=== PATIENT | female | born 1975 | race African-American/Black ===

== ENCOUNTER 2017-07-19 13:07 | Emergency (ER) | payer BC, OTHER ==
[~2017-07-19] VITALS: Ht 165.1 cm; Wt 65.8 kg
[~2017-07-19 13:07] MED LIST: AMOXICILLIN875 MG PO; AUGMENTIN 875875 MG PO; B COMPLEX-VITA1 EACH PO; CARISOPRODOL 3350 MG PO; CLARITIN10 MG PO; CLINDAMYCIN; COMPAZINE10 MG PO; COUMADIN 1MG TAB1 M1 NG; COUMADIN 5 MG TA5 M1 PO; FLEXERIL; FML 0.1% 10ML10 M1; HYDROCODON-ACE1 EAC7; IBUPROFEN 600600 M1 PO; IRON325 PO; K-DUR10 ME1 PO; LIPITOR80 MG PO; LORTABELXR PO; LYRICA 75 MG CA75 MG PO; MEDROLDOSEPACK PO; NAPROSYN500 MG PO; NIASPAN ER 101000 M1 PO; NOHOMEMEDICATIONS; NORCO 5-325 TA1 EACH; NORCO 5-325 TA1 EACH PO; PEPCID20 MG PO; PERCOCET 5-3251 EACH PO; POTASSIUM; TOBRAMYCIN SULFA5 ML IO; VALIUM2 MG PO; VITAMIN D10000 UNIT PO; ZOFRAN ODT4 MG PO
[2017-07-19 15:34] LABS: URINE BILIRUBIN NEGATIVE (Negative); URINE BLOOD NEGATIVE (Negative); URINE CLARITY SL CLOUDY; URINE COLOR YELLOW; URINE GLUCOSE-RANDOM* NEGATIVE (Negative); URINE KETONES NEGATIVE (Negative); URINE LEUKOCYTES NEGATIVE (Negative); URINE NITRITE NEGATIVE (Negative); URINE PROTEIN (DIPSTICK) NEGATIVE (Negative); URINE SPECIFIC GRAVITY <= 1.005 (1.005-1.035); URINE UROBILINOGEN 0.2 E.U./dl (0.2-1.0)
[2017-07-19 16:03] LABS: ABSOLUTE NEUTROPHILS 3.6 thou/uL (1.4-8.2); BASOPHILS 1.5 % (0.0-2.0); EOSINOPHILS 0.6 % (0.0-3.0); HEMATOCRIT 35.1 % (37.0-47.0); HEMOGLOBIN 11.8 gm/dL (12.0-15.0); LYMPHOCYTES 30.7 % (24.0-44.0); MCH 27.4 pg (26.0-34.0); MCHC 33.6 g/dL (28.0-37.0); MCV 81.4 fL (80.0-100.0); MONOCYTES 7.8 % (1.0-8.0); PLATELET COUNT 433 thou/uL (150-400); POLYS 59.4 % (36.0-66.0); RBC 4.32 mil/uL (4.20-5.00)
[2017-07-19] MEDS ORDERED: COUMADIN7.5 MG PO (16:10)
[2017-07-19 16:11] LABS: CALCIUM 9.5 mg/dL (8.5-10.1); CREATININE 0.8 mg/dL (0.6-1.0); POTASSIUM 3.8 mmol/L (3.5-5.1)
[2017-07-19 16:17] LABS: ALBUMIN 4.1 g/dL (3.4-5.0); TOTAL BILIRUBIN 0.6 mg/dL (<0.1-1.0); TOTAL PROTEIN 8.4 g/dL (6.4-8.2)
[2017-07-19] MEDS ORDERED: ONDANSETRON HCL4 M2 PO (17:08)
[2017-07-19] MEDS ORDERED: LEVSIN0.125 MG PO (17:08)
[2017-07-19 17:33] VITALS: BP 102/64
[2018-03-13] MEDS ORDERED: NORCO 5-325 TA1 EACH PO (18:57)
== END 2017-07-19 17:33 | disposition home or self-care (01) ==
LOC: ER 13:07
PROVIDERS: Physician Assistant
DX: B34.9 Viral infection, unspecified (principal)

== ENCOUNTER 2020-07-01 19:49 | Emergency (ER) | payer BC ==
[~2020-07-01] VITALS: Ht 170.2 cm; Wt 59.9 kg
[~2020-07-01 19:49] MED LIST changes: +COUMADIN7.5 MG PO; +LEVSIN0.125 MG PO; +ONDANSETRON HCL4 M2 PO
[2020-07-01 20:16] VITALS: BP 112/79
[2020-07-01] MEDS ORDERED: CARAFATE1 GM/10 ML PO (22:06)
[2020-07-01] MEDS ORDERED: ULTRAM50 MG PO (23:32)
--- NOTE | 2020-07-02 15:18 | EKG ---
[place] [address] [facility] [place] [employer] [employer] [place] [address] ELECTROCARDIOGRAM REPORT Name: MARCE CASTILLONIEL [facility]: [facility] [id number] Admission: 07/01/20 Attend Phys: Discharge: 07/01/20 Date of : 71 Report #: [id number] [facility] ED Test Date: 2020-07-01 Test Time: 22:21:08 Pat Name: MARCE CASTILLO Department: Room: Gender: F All Source Collection Manager: [facility] : 1975 Requested By: Hernando Ta Order Number: [id number] MD: Farhad Antoine Measurements Intervals [place] Rate: 79 P: 64 [place]: 134 QRS: 63 QRSD: 85 T: 60 QT: 366 QTc: 420 Interpretive Statements Sinus rhythm Normal tracing Compared to ECG 04/07/2013 16:16:05 No significant change was found Electronically Signed On 07-02-2020 15:18:07 [employer]OOK[employer] by Farhad Antoine [email or web address] <ELECTRONICALLY SIGNED> By: Farhad Antoine MD, [facility] 07/02/20 1518 [id number] [id number] Farhad Antoine MD, FACC /EPI
== END 2020-07-01 23:50 | disposition home or self-care (01) ==
LOC: ER 19:49
DX: R07.9 Chest pain, unspecified (principal); R13.10 Dysphagia, unspecified; G89.18 Other acute postprocedural pain; J02.9 Acute pharyngitis, unspecified; Z79.01 Long term (current) use of anticoagulants; Z79.899 Other long term (current) drug therapy

== ENCOUNTER 2020-09-03 10:19 | Emergency (ER) | payer OTHER ==
[~2020-09-03] VITALS: Ht 165.1 cm; Wt 56.7 kg
[~2020-09-03 10:19] MED LIST changes: +CARAFATE1 GM/10 ML PO; +ULTRAM50 MG PO
[2020-09-03 11:04] LABS: URINE BILIRUBIN NEGATIVE (Negative); URINE BLOOD 3+ (Negative); URINE CLARITY CLEAR; URINE COLOR YELLOW; URINE GLUCOSE-RANDOM* NEGATIVE (Negative); URINE KETONES NEGATIVE (Negative); URINE LEUKOCYTES-REFLEX NEGATIVE (Negative); URINE NITRITE-REFLEX NEGATIVE (Negative); URINE PROTEIN (DIPSTICK) NEGATIVE (Negative); URINE SPECIFIC GRAVITY <= 1.005 (1.005-1.035); URINE UROBILINOGEN 0.2 E.U./dl (0.2-1.0)
[2020-09-03 11:20] LABS: CASTS None Seen /LPF (None Seen); CRYSTALS None Seen /LPF (None Seen); SQUAMOUS 4-10 Moderate /LPF (0-3)
[2020-09-03 11:23] LABS: BACTERIA-REFLEX 1-9 Few /HPF (None Seen); URINE RBC 0-2 Rare /HPF (0-2); URINE WBC-REFLEX 0-5 Rare /HPF (0-5)
[2020-09-03] MEDS ORDERED: HYDROCODON-ACE1 EAC7 PO (11:45)
[2020-09-03] MEDS ORDERED: DORYX MPC120 MG PO (11:46)
[2020-09-03] MEDS ORDERED: MELOXICAM15 MG PO (11:46)
[2020-09-03 11:48] LABS: ABSOLUTE NEUTROPHILS 1.5 thou/uL (1.4-8.2); BASOPHILS 1.4 % (0.0-2.0); EOSINOPHILS 7.7 % (0.0-3.0); HEMATOCRIT 31.6 % (37.0-47.0); HEMOGLOBIN 10.3 gm/dL (12.0-15.0); LYMPHOCYTES 35.6 % (24.0-44.0); MCH 28.9 pg (26.0-34.0); MCHC 32.6 g/dL (28.0-37.0); MCV 88.7 fL (80.0-100.0); MONOCYTES 9.1 % (1.0-8.0); PLATELET COUNT 406 thou/uL (150-400); POLYS 46.2 % (36.0-66.0); RBC 3.56 mil/uL (4.20-5.00); WBC 3.2 thou/uL (4.0-11.0)
[2020-09-03 11:49] LABS: ANION GAP 6 mmol/L (7-16); BUN 7 mg/dL (7-18); CALCIUM 9.1 mg/dL (8.5-10.1); CHLORIDE 101 mmol/L (98-107); CO2 30 mmol/L (21-32); CREATININE 0.8 mg/dL (0.6-1.0); GLUCOSE 127 mg/dL (74-106); SODIUM 137 mmol/L (136-145)
[2020-09-03] MEDS ORDERED: AMITRIPTYLINE H10 M1 PO (11:49)
[2020-09-03 12:00] LABS: ALBUMIN 3.6 g/dL (3.4-5.0); AMYLASE 41 U/L (25-115); DIRECT BILIRUBIN < 0.1 mg/dL (<0.1-0.2); LIPASE 94 U/L (73-393); MAGNESIUM 1.8 mg/dL (1.8-2.4); PHOSPHORUS 1.9 mg/dL (2.5-4.9); SGOT 29 U/L (15-37); SGPT 93 U/L (30-65); TOTAL BILIRUBIN 0.2 mg/dL (0.2-1.0); TOTAL PROTEIN 7.4 g/dL (6.4-8.2); TROPONIN-I <0.06 ng/mL (<0.06)
[2020-09-03 12:55] LABS: ANISOCYTOSIS 1+; OVALOCYTES FEW; POIKILOCYTOSIS SLIGHT
[2020-09-03] MEDS ORDERED: MACROBID 100 M100 M1 PO (13:37)
[2020-09-03] MEDS ORDERED: PYRIDIUM200 MG PO (13:37)
[2020-09-03] MEDS ORDERED: ZOFRAN ODT4 MG PO (13:37)
[2020-09-03 14:07] VITALS: BP 104/65
--- NOTE | 2020-09-06 07:35 | EKG ---
[place] [address] [facility] [place] [address] ELECTROCARDIOGRAM REPORT Name: MARCE CASTILLONIEL [facility] [id number] Admission: 09/03/20 Attend Phys: Discharge: 09/03/20 Date of : 71 Report #: [id number] [facility] ED Test Date: 2020-09-03 Test Time: 11:15:46 Pat Name: MARCE CASTILLO Department: Room: Gender: F Timber Sprinkler: JAYDE GAITAN : 1975 Requested By: Uday Low Order Number: [id number] MD: Matheus Vazquez Measurements Intervals [place] Rate: 80 P: 61 [place]: 128 QRS: 33 QRSD: 86 T: 29 QT: 375 QTc: 433 Interpretive Statements Sinus rhythm Probable left atrial enlargement Compared to ECG 07/01/2020 22:21:08 No significant changes Electronically Signed On 09-06-2020 7:35:18 PRECISION LENS CENTERER AND EDGER by Matheus Vazquez [email or web address] <ELECTRONICALLY SIGNED> By: Matheus Vazquez MD, [facility] 09/06/20 0735 1115 1115 Matheus Vazquez MD, FACC /EPI
== END 2020-09-03 14:08 | disposition home or self-care (01) ==
LOC: ER 10:19
PROVIDERS: Emergency Medicine
DX: S30.1XXA Contusion of abdominal wall, initial encounter (principal); E78.5 Hyperlipidemia, unspecified; G89.18 Other acute postprocedural pain; N39.0 Urinary tract infection, site not specified; E83.39 Other disorders of phosphorus metabolism; Z90.49 Acquired absence of other specified parts of digestive tract; Z79.01 Long term (current) use of anticoagulants; Z79.2 Long term (current) use of antibiotics; Z79.899 Other long term (current) drug therapy; Z88.8 Allergy status to other drugs, medicaments and biological substances; X58.XXXA Exposure to other specified factors, initial encounter; Y93.89 Activity, other specified; Y92.89 Other specified places as the place of occurrence of the external cause; Y99.8 Other external cause status

== ENCOUNTER 2020-09-10 19:32 | Emergency (ER) | payer OTHER ==
[~2020-09-10] VITALS: Ht 165.1 cm; Wt 57.6 kg
[~2020-09-10 19:32] MED LIST changes: +AMITRIPTYLINE H10 M1 PO; +DORYX MPC120 MG PO; +HYDROCODON-ACE1 EAC7 PO; +MACROBID 100 M100 M1 PO; +MELOXICAM15 MG PO; +PYRIDIUM200 MG PO
[2020-09-10 19:58] LABS: URINE BILIRUBIN NEGATIVE (Negative); URINE BLOOD 1+ (Negative); URINE CLARITY CLEAR; URINE COLOR YELLOW; URINE GLUCOSE-RANDOM* NEGATIVE (Negative); URINE KETONES NEGATIVE (Negative); URINE LEUKOCYTES-REFLEX NEGATIVE (Negative); URINE NITRITE-REFLEX NEGATIVE (Negative); URINE PROTEIN (DIPSTICK) NEGATIVE (Negative); URINE UROBILINOGEN 0.2 E.U./dl (0.2-1.0)
[2020-09-10 20:23] LABS: ABSOLUTE NEUTROPHILS 3.4 thou/uL (1.4-8.2); BASOPHILS 0.9 % (0.0-2.0); EOSINOPHILS 2.9 % (0.0-3.0); HEMATOCRIT 37.9 % (37.0-47.0); HEMOGLOBIN 12.4 gm/dL (12.0-15.0); LYMPHOCYTES 32.1 % (24.0-44.0); MCH 28.6 pg (26.0-34.0); MCHC 32.8 g/dL (28.0-37.0); MCV 87.3 fL (80.0-100.0); MONOCYTES 6.6 % (1.0-8.0); PLATELET COUNT 478 thou/uL (150-400); POLYS 57.5 % (36.0-66.0); RBC 4.34 mil/uL (4.20-5.00); RDW 18.6 % (10.5-14.5); WBC 5.9 thou/uL (4.0-11.0)
[2020-09-10 20:25] LABS: SQUAMOUS >10 Many /LPF (0-3)
[2020-09-10 20:26] LABS: BACTERIA-REFLEX 1-9 Few /HPF (None Seen); CASTS None Seen /LPF (None Seen)
[2020-09-10 20:27] LABS: CRYSTALS None Seen /LPF (None Seen); URINE RBC 0-2 Rare /HPF (0-2); URINE WBC-REFLEX 0-5 Rare /HPF (0-5)
[2020-09-10 21:01] LABS: CALCIUM 9.6 mg/dL (8.5-10.1); CREATININE 0.8 mg/dL (0.6-1.0); POTASSIUM 3.8 mmol/L (3.5-5.1)
[2020-09-10 21:07] LABS: ALBUMIN 4.2 g/dL (3.4-5.0); TOTAL BILIRUBIN 0.5 mg/dL (0.2-1.0); TOTAL PROTEIN 8.3 g/dL (6.4-8.2)
[2020-09-10 21:12] LABS: INR 1.8
[2020-09-11 00:11] VITALS: BP 119/72
--- NOTE | 2020-09-11 11:19 | EKG ---
[place] [address] [facility] [place] [address] ELECTROCARDIOGRAM REPORT Name: MARCE CASTILLONIEL [facility] [id number] Admission: 09/10/20 Attend Phys: Discharge: 09/11/20 Date of : 71 Report #: [id number] [facility] ED Test Date: 2020-09-10 Test Time: 19:42:22 Pat Name: MARCE CASTILLO Department: Room: Gender: F Agile Test Lead: umer : 1975 Requested By: Corey Cruz Order Number: [id number] MD: Farhad Antoine Measurements Intervals [place] Rate: 86 P: 70 [place]: 122 QRS: 55 QRSD: 80 T: 27 QT: 355 QTc: 425 Interpretive Statements Sinus rhythm Consider left ventricular hypertrophy Compared to ECG 09/03/2020 11:15:46 No significant changes Electronically Signed On 09-11-2020 11:19:20 SENIOR MAINTENANCE MECHANIC by Farhad Antoine [email or web address] <ELECTRONICALLY SIGNED> By: Farhad Antoine MD, [facility] 09/11/20 1119 41 41 Farhad Antoine MD, FACC /EPI
== END 2020-09-11 00:17 | disposition home or self-care (01) ==
LOC: ER 19:32
PROVIDERS: Emergency Medicine
DX: R42 Dizziness and giddiness (principal); Z90.49 Acquired absence of other specified parts of digestive tract; Z79.01 Long term (current) use of anticoagulants; Z79.899 Other long term (current) drug therapy; Z88.8 Allergy status to other drugs, medicaments and biological substances

== ENCOUNTER 2020-09-18 17:57 | Emergency (ER) | payer OTHER ==
[~2020-09-18] VITALS: Ht 165.1 cm; Wt 56.7 kg
[2020-09-18 18:35] LABS: ABSOLUTE NEUTROPHILS 2.6 thou/uL (1.4-8.2); BASOPHILS 1.6 % (0.0-2.0); EOSINOPHILS 4.2 % (0.0-3.0); HEMATOCRIT 37.5 % (37.0-47.0); HEMOGLOBIN 12.8 gm/dL (12.0-15.0); MCH 29.9 pg (26.0-34.0); MCHC 34.1 g/dL (28.0-37.0); MCV 87.5 fL (80.0-100.0); PLATELET COUNT 398 thou/uL (150-400); POLYS 50.2 % (36.0-66.0); RBC 4.29 mil/uL (4.20-5.00); RDW 17.5 % (10.5-14.5); WBC 5.1 thou/uL (4.0-11.0)
[2020-09-18 18:48] LABS: ANION GAP 9 mmol/L (7-16); BUN 8 mg/dL (7-18); CALCIUM 9.1 mg/dL (8.5-10.1); CHLORIDE 101 mmol/L (98-107); CO2 27 mmol/L (21-32); CREATININE 0.8 mg/dL (0.6-1.0); GLUCOSE 93 mg/dL (74-106); SODIUM 137 mmol/L (136-145)
[2020-09-18 18:50] LABS: INR 1.9; PROTIME 19.7 Seconds (9.3-11.4)
[2020-09-18 18:50] LABS: URINE BILIRUBIN NEGATIVE (Negative); URINE BLOOD NEGATIVE (Negative); URINE CLARITY CLEAR; URINE COLOR YELLOW; URINE GLUCOSE-RANDOM* NEGATIVE (Negative); URINE KETONES NEGATIVE (Negative); URINE LEUKOCYTES-REFLEX NEGATIVE (Negative); URINE NITRITE-REFLEX NEGATIVE (Negative); URINE PROTEIN (DIPSTICK) NEGATIVE (Negative); URINE SPECIFIC GRAVITY <= 1.005 (1.005-1.035); URINE UROBILINOGEN 0.2 E.U./dl (0.2-1.0)
[2020-09-18 19:11] LABS: ALBUMIN 4.1 g/dL (3.4-5.0); SGOT 21 U/L (15-37); SGPT 30 U/L (14-59); TOTAL BILIRUBIN 0.4 mg/dL (0.2-1.0); TOTAL PROTEIN 8.1 g/dL (6.4-8.2); TROPONIN-I <0.06 ng/mL (<0.06)
[2020-09-18] MEDS ORDERED: OXYCODONE HCL 55 MG PO (19:16)
[2020-09-18 20:09] VITALS: BP 100/64
--- NOTE | 2020-09-20 07:23 | EKG ---
[place] [address] [place] [address] ELECTROCARDIOGRAM REPORT Name: ANNAMARCE Room #: [facility]P [facility]#: [id number] Admission: 09/18/20 Attend Phys: Discharge: 09/18/20 Date of : 71 Report #: [id number] [facility] ED Test Date: 2020-09-18 Test Time: 18:05:22 Pat Name: MARCE CASTILLO Department: Room: Gender: F Coding Coordinator: ADALBERTO : 1975 Requested By: Myrtle Paz Order Number: [id number] MD: Matheus Vazquez Measurements Intervals [place] Rate: 94 P: 73 [place]: 116 QRS: 46 QRSD: 75 T: 9 QT: 355 QTc: 444 Interpretive Statements Sinus rhythm Borderline short [place] interval Consider left ventricular hypertrophy Nonspecific T abnrm, anterolateral leads Compared to ECG 09/10/2020 19:42:22 No significant changes Electronically Signed On 09-20-2020 7:23:27 CDT by Matheus Vazquez [email or web address] <ELECTRONICALLY SIGNED> By: Matheus Vazquez MD, [facility] 09/20/20 0723 04 04 Matheus Vazquez MD, FACC /EPI
== END 2020-09-18 20:21 | disposition home or self-care (01) ==
LOC: ER 17:57
PROVIDERS: Physician Assistant
DX: R07.9 Chest pain, unspecified (principal); K14.6 Glossodynia; Z90.49 Acquired absence of other specified parts of digestive tract; Z79.01 Long term (current) use of anticoagulants; Z88.8 Allergy status to other drugs, medicaments and biological substances